=== PATIENT | male | born 1990 | race Caucasian/White ===

== ENCOUNTER 2016-12-13 10:37 | Emergency (ER) | payer BC ==
[~2016-12-13] VITALS: Ht 177.8 cm; Wt 77.1 kg
[2016-12-13 10:43] VITALS: BP 149/96
--- NOTE | 2016-12-13 10:50 | NUR ---
26 y/o male BIB girlfriend, patient c/o left lower back and left flank pain x 8 months with an increase in pain x 1 day. Patient states his pain is 10/10, he has been having difficulty urinating, pain upon urinating x couple of months with increase x 1 day. States he has N/V x 1 day with loose stools yesterday. No SOB, or CP at this time. Patient is resting in bed, 1 side rail up, girlfriend sitting at bedside where other side rail is down.
--- NOTE | 2016-12-13 10:52 | NUR ---
PT TO BED 7 AT THIS TIME.
--- NOTE | 2016-12-13 11:15 | NUR ---
Urine Dip Stick completed and given to Dr. Eden
--- NOTE | 2016-12-13 11:19 | NUR ---
Patient being evaluated by physician at bedside.
[2016-12-13] MEDS ORDERED: NACL 0.9% 1,000 ML IV ONE (11:35)
[2016-12-13] MEDS ORDERED: ONDANSETRON 4 MG/2 ML VIAL IVP ONE ×2 (11:35→14:00)
[2016-12-13] MEDS ORDERED: KETOROLAC 30 MG/ML VIAL IVP ONE (11:35)
[2016-12-13] MEDS ORDERED: DIPHENOXYLATE /ATROPINE 2.5 MG TAB PO ONE (11:35)
--- NOTE | 2016-12-13 11:38 | NUR ---
pt transported to CT via [facility]
--- NOTE | 2016-12-13 11:47 | NUR ---
pt returned from CT scan resting in bed
[2016-12-13] MEDS ORDERED: LIDOCAINE 1% 500 MG/50 ML VIAL INJ ONE (12:45)
--- NOTE | 2016-12-13 13:20 | NUR ---
Dr. Eden administered trigger point injections to patients back muscles utilizing lidocaine, patient is resting in bed with girlfriend at bedside.
[2016-12-13] MEDS ORDERED: MORPHINE SULFATE 4 MG/ML SYR IVP ONE (14:00)
[2016-12-13 15:05] VITALS: BP 112/58
--- NOTE | 2016-12-13 15:08 | NUR ---
Patient discharged with v/s stable. Written and verbal after care instructions given and explained. IV was D/C'd, Girlfriend will drive patient home, patient is aware he is not to drive as he was given medications that will impare his ability to drive. Patient alert, oriented and verbalized understanding of instructions. Ambulatory with to car. All questions addressed prior to discharge. ID band removed. Patient advised to follow up with PMD. Rx of Zofran, Naprosyn, [place], Lomotil given. Patient educated on indication of medication including possible reaction and side effects, further eductated patient on risk of constipation with [place] and Lomotil use. Opportunity to ask questions provided and answered. Patient states his pain is now tolerable, labs and CT results provided to patient for his PMD.
== END 2016-12-13 15:08 | disposition home or self-care (01) ==
LOC: MED 10:37
DX: M62.830 Muscle spasm of back (principal); R11.10 Vomiting, unspecified; R19.7 Diarrhea, unspecified; R03.0 Elevated blood-pressure reading, without diagnosis of hypertension; Z88.0 Allergy status to penicillin
CPT/HCPCS: 20552; 36415; 74176; 80053; 81001; 83690; 83735; 85025; 96361; 96374; 96375; 96376; 99285; J1885; J2001; J2270; J2405; J7030